=== PATIENT | female | born 1980 | race Two or more races ===

== ENCOUNTER 2019-09-16 16:13 | Emergency (ER) | payer OTHER ==
[~2019-09-16] VITALS: Ht 170.2 cm; Wt 128.8 kg
--- NOTE | 2019-09-16 16:20 | NUR ---
LEA 89 FROM WORK C/O SEIZURE EPISODE WITNESSED FOR 3 MINS PER EMS BG 137. PATIENT A/OX3-4, GOING BACK TO BASELINE. BREATHING EVEN AND UNLABORED, NO SOB NOTED. NEEDS ATTENDED, KEPT COMFORTABLE.
[2019-09-16] MEDS ORDERED: IV NS 0.9% 1,000 ML BAG IV ONE (17:30)
--- NOTE | 2019-09-16 17:38 | NUR ---
PATIENT TAKEN TO CT VIA GURNEY.
[2019-09-16 17:40] LABS: BASOPHILS # (AUTO) 0.1 /CMM (0.0-0.2); BASOPHILS % (AUTO) 0.6 % (0.0-2.0); EOSINOPHILS % (AUTO) 0.6 % (0.0-6.0); HEMATOCRIT 40 % (33-45); HEMOGLOBIN 13.4 g/dL (11.5-14.8); LYMPHOCYTES # (AUTO) 2.5 /CMM (0.8-4.8); LYMPHOCYTES % (AUTO) 27.9 % (20.0-44.0); MEAN CORPUSCULAR HGB CONC 34 g/dl (31.0-36.0); MEAN CORPUSCULAR VOLUME 96 fL (82-100); MONOCYTES # (AUTO) 0.6 /CMM (0.1-1.30); MONOCYTES % (AUTO) 6.4 % (2.0-12.0); NEUTROPHILS # (AUTO) 5.7 /CMM (1.8-8.9); NEUTROPHILS % (AUTO) 64.5 % (43.0-81.0); PLATELET COUNT (AUTO) 315 /CMM (150-450); RED BLOOD CELL COUNT(AUTO) 4.18 MIL/uL (4.0-5.2); WHITE BLOOD COUNT (AUTO) 8.8 K/uL (4.3-11.0)
[2019-09-16 17:48] LABS: CALCIUM, SERUM 8.6 mg/dL (8.5-10.1); CREATININE 0.8 mg/dL (0.6-1.3); POTASSIUM 3.7 mmol/L (3.5-5.1)
[2019-09-16 17:54] LABS: ALBUMIN 3.5 g/dL (3.4-5.0); BILIRUBIN,DIRECT 0.1 mg/dL (0.0-0.2); BILIRUBIN,TOTAL 0.4 mg/dL (0.2-1.0); TOTAL PROTEIN, SERUM 8.5 g/dL (6.4-8.2)
--- NOTE | 2019-09-16 18:29 | NUR ---
PATIENT ASLEEP BUT AROUSABLE, ALERT AND ORIENTED. NO DISTRESS NOTED.
[2019-09-16] MEDS ORDERED: VALPROATE 1,000 MG in IV NS 0.9% 100 ML IV ONE (18:30)
--- NOTE | 2019-09-16 18:46 | NUR ---
PATIENT A/OX4, NO CHANGE IN LOC, BREATHING EVEN AND UNLABORED, NO SOB NOTED, NEEDS ATTENDED. VITALS STABLE.
--- NOTE | 2019-09-16 19:19 | NUR ---
REPORT RECEIVED FROM PITER SANDHU
--- NOTE | 2019-09-16 20:08 | NUR ---
Patient discharged to home in stable condition. Written and verbal after care instructions given. Patient verbalizes understanding of instruction.IV removed. Catheter intact and site benign. Pressure and 4x4 applied to site. No bleeding noted.
[2019-09-16 20:41] VITALS: BP 134/74
== END 2019-09-16 20:41 | disposition home or self-care (01) ==
LOC: ER 16:28
DX: G40.909 Epilepsy, unspecified, not intractable, without status epilepticus (principal); R94.31 Abnormal electrocardiogram [ECG] [EKG]
CPT/HCPCS: 36415; 70450; 80048; 80076; 80164; 85025; 93005; 96365; 99285; J3490; J7030 ×2